=== PATIENT | female | born 1990 | race Asian ===

== ENCOUNTER 2019-02-14 16:26 | Outpatient (CLI) | payer BC ==
[~2019-02-14 16:26] MED LIST: VIIBRYD40 MG PO; [UNRECOGNIZED DRUG - OTHER] PO; [UNRECOGNIZED DRUG - OTHER] PO
--- NOTE | 2019-02-15 11:14 | Diagnostic Imaging Report ---
Indication: Neck pain, abnormal thyroid function Technique: Grayscale and duplex images of the thyroid Comparison: none Findings: Right thyroid lobe measures 4.9 cm length x 1.1 cm AP. Left thyroid lobe measures 4.3 cm length x 1.3 cm AP. Both thyroid lobes demonstrate normal echogenicity. No focal abnormality. Impression: negative
== END 2019-02-14 18:26 | disposition home or self-care (01) ==
LOC: ULS 16:26
DX: R94.6 Abnormal results of thyroid function studies (principal)
CPT/HCPCS: 76536

== ENCOUNTER → 2020-10-16 | Outpatient (CLI) | payer BC ==
--- NOTE | 2020-10-16 16:13 | Diagnostic Imaging Report ---
Indication: Recent history of neck pain and abnormal thyroid function Technique: Grayscale and duplex images of the thyroid Comparison: 02/13/2019 Findings: Right thyroid lobe measures 3.5 cm length x 1.1 cm AP. Left thyroid lobe measures 3.6 cm length x 1.1 cm AP. Both thyroid lobes demonstrate normal echogenicity. No focal abnormality. There is no significant interim change. Impression: negative
== END | disposition home or self-care (01) ==
LOC: ULS 12:51
DX: I10 Essential (primary) hypertension (principal); M54.2 Cervicalgia; R94.6 Abnormal results of thyroid function studies
CPT/HCPCS: 76536